=== PATIENT | female | born 1970 | race Two or more races ===

== ENCOUNTER → 2018-01-26 06:45 | Outpatient (CLI) | payer OTHER | END | disposition home or self-care (01) | LOC: LAB 06:45 | DX: D50.0 Iron deficiency anemia secondary to blood loss (chronic) (principal); N93.8 Other specified abnormal uterine and vaginal bleeding; J32.8 Other chronic sinusitis; I10 Essential (primary) hypertension; D50.8 Other iron deficiency anemias; D51.8 Other vitamin B12 deficiency anemias; D55.0 Anemia due to glucose-6-phosphate dehydrogenase [G6PD] deficiency; D51.1 Vitamin B12 deficiency anemia due to selective vitamin B12 malabsorption with proteinuria; D51.0 Vitamin B12 deficiency anemia due to intrinsic factor deficiency; D68.0 Von Willebrand disease; D68.8 Other specified coagulation defects ==

== ENCOUNTER 2018-04-21 06:41 | Outpatient (CLI) | payer OTHER | END 2018-04-21 06:45 | disposition home or self-care (01) | LOC: LAB 06:41 | DX: D50.0 Iron deficiency anemia secondary to blood loss (chronic) (principal); N39.8 Other specified disorders of urinary system; I10 Essential (primary) hypertension; D50.8 Other iron deficiency anemias; D51.8 Other vitamin B12 deficiency anemias; D55.0 Anemia due to glucose-6-phosphate dehydrogenase [G6PD] deficiency; D51.1 Vitamin B12 deficiency anemia due to selective vitamin B12 malabsorption with proteinuria; D51.0 Vitamin B12 deficiency anemia due to intrinsic factor deficiency; D68.0 Von Willebrand disease; D68.8 Other specified coagulation defects ==

== ENCOUNTER 2018-07-05 06:51 | Outpatient (CLI) | payer OTHER | END 2018-07-05 16:43 | disposition home or self-care (01) | LOC: LAB 06:51 | DX: D68.0 Von Willebrand disease (principal); D50.0 Iron deficiency anemia secondary to blood loss (chronic); D51.1 Vitamin B12 deficiency anemia due to selective vitamin B12 malabsorption with proteinuria; N93.8 Other specified abnormal uterine and vaginal bleeding; I10 Essential (primary) hypertension; J32.8 Other chronic sinusitis; D50.8 Other iron deficiency anemias; D51.8 Other vitamin B12 deficiency anemias; D51.0 Vitamin B12 deficiency anemia due to intrinsic factor deficiency; D68.8 Other specified coagulation defects; M81.0 Age-related osteoporosis without current pathological fracture; E63.8 Other specified nutritional deficiencies; E07.89 Other specified disorders of thyroid; E11.9 Type 2 diabetes mellitus without complications; R80.8 Other proteinuria; Z12.11 Encounter for screening for malignant neoplasm of colon ==

== ENCOUNTER → 2018-09-10 09:41 | Outpatient (CLI) | payer OTHER | END | disposition home or self-care (01) | LOC: LAB 09:41 | DX: D68.0 Von Willebrand disease (principal); D50.0 Iron deficiency anemia secondary to blood loss (chronic); D51.1 Vitamin B12 deficiency anemia due to selective vitamin B12 malabsorption with proteinuria; N93.8 Other specified abnormal uterine and vaginal bleeding; I10 Essential (primary) hypertension; J32.8 Other chronic sinusitis; D50.8 Other iron deficiency anemias; D68.8 Other specified coagulation defects ==

== ENCOUNTER 2018-12-09 06:29 | Outpatient (CLI) | payer OTHER | END 2018-12-09 06:40 | disposition home or self-care (01) | LOC: LAB 06:29 | DX: D64.89 Other specified anemias (principal) ==